=== PATIENT | male | born 1990 | race African-American/Black ===

== ENCOUNTER 2022-05-16 12:00 | Emergency (ER) | payer MEDICAID, OTHER ==
[~2022-05-16] VITALS: Ht 170.2 cm; Wt 74.9 kg
[2022-05-16 12:23] VITALS: BP 119/72
[2022-05-16] MEDS ORDERED: KETOROLAC TROMETH 60MG/2ML VIAL IM ONE (12:30)
[2022-05-16] MEDS ORDERED: HYDROcodone-ACET 5/325MG TAB PO ONE (12:30)
[2022-05-16] MEDS ORDERED: HYDR-4902 PO (13:19)
[2022-05-16] MEDS ORDERED: IBUP800T26 PO (13:19)
== END 2022-05-16 13:57 | disposition home or self-care (01) ==
LOC: ER 12:00
DX: S63.502A Unspecified sprain of left wrist, initial encounter (principal); W01.0XXA Fall on same level from slipping, tripping and stumbling without subsequent striking against object, initial encounter; Y93.89 Activity, other specified; Y92.89 Other specified places as the place of occurrence of the external cause; Y99.8 Other external cause status
CPT/HCPCS: 73130; 96372; 99283; J1885

== ENCOUNTER 2022-08-20 04:27 | Emergency (ER) | payer MEDICAID, OTHER ==
[~2022-08-20] VITALS: Ht 170.2 cm; Wt 70.4 kg
[~2022-08-20 04:27] MED LIST: HYDR-4902 PO; IBUP800T26 PO
[2022-08-20 06:33] VITALS: BP 134/85
[2022-08-20] MEDS ORDERED: HYDROcodone-ACET 5/325MG TAB PO ONE (07:15)
[2022-08-20] MEDS ORDERED: BACL10TA PO (07:32)
[2022-08-20] MEDS ORDERED: IBUP800T27 PO (07:32)
== END 2022-08-20 07:36 | disposition home or self-care (01) ==
LOC: ER 04:27
DX: S39.012A Strain of muscle, fascia and tendon of lower back, initial encounter (principal); F17.210 Nicotine dependence, cigarettes, uncomplicated; Z79.899 Other long term (current) drug therapy; V89.2XXA Person injured in unspecified motor-vehicle accident, traffic, initial encounter; Y93.89 Activity, other specified; Y92.89 Other specified places as the place of occurrence of the external cause; Y99.8 Other external cause status
CPT/HCPCS: 72040; 72100

== ENCOUNTER 2023-12-10 16:19 | Inpatient (IN) | payer MEDICAID ==
[~2023-12-10] VITALS: Ht 170.2 cm; Wt 67.0 kg
[~2023-12-10 16:19] MED LIST changes: +BACL10TA PO; +IBUP-1455 PO; +IBUP-1456 PO; -IBUP800T26 PO
[2023-12-10] MEDS: ONDANSETRON ODT 4 MG TAB PO ONE (16:52)
[2023-12-10] MEDS: MECLIZINE HCL 25 MG TAB PO ONE (16:52)
[2023-12-10 16:55] VITALS: PULSE 61; RESP 16; O2SAT 100
[2023-12-10 17:31] LABS: Basophils # (auto) 0.1 10 ^3/uL (0-0.2); Basophils % (auto) 0.9 % (0.0-2.0); Eosinophils # (auto) 0.2 10 ^3/uL (0-0.8); Eosinophils % (auto) 3.6 % (0.0-7.0); Hematocrit 48.4 % (41.0-53.0); Hemoglobin 16.2 g/dL (13.5-17.5); Lymphocytes % (auto) 29.7 % (10.0-50.0); Mean Corpuscular Hemoglobin 32.4 pg (28.0-32.0); Mean Corpuscular Hgb Conc. 33.6 g/dL (32.0-36.0); Mean Corpuscular Volume 96.3 fL (80.0-100.0); Monocytes # (auto) 0.7 10 ^3/uL (0-1.3); Monocytes % (auto) 10.4 % (0.0-12.0); Neutrophils # (auto) 3.8 10 ^3/uL (1.6-8.6); Neutrophils % (auto) 55.4 % (37.0-80.0); Nucleated Red Blood Cells % 0.1 %; Red Blood Cells 5.02 10^6/uL (4.5-5.90); Red Cell Distribution Width 12.9 % (11.8-14.3); White Blood Cell 6.8 10^3/uL (4.4-10.8)
[2023-12-10 17:44] LABS: Alanine Aminotransferase 22 U/L (7-40); Albumin 4.4 g/dL (3.2-4.8); Alkaline Phosphatase 69 U/L (46-116); Anion Gap 9 (5-15); Aspartate Aminotransferase 15 U/L (13-40); BUN/Creatinine Ratio 4.8 (10.0-20.0); Bilirubin, Total 0.7 mg/dL (0.2-1.0); Blood Urea Nitrogen 6 mg/dL (9-23); Calcium 9.8 mg/dL (8.7-10.4); Carbon Dioxide 25 mmol/L (20-30); Chloride 103 mmol/L (98-107); Glucose 92 mg/dL (74-106); Lipase 51 U/L (12-53); Potassium 3.6 mmol/L (3.5-5.1); Sodium 137 mmol/L (136-145)
[2023-12-10 17:45] LABS: Total Protein 7.5 g/dL (5.7-8.2)
[2023-12-10 17:46] LABS: Urine Bacteria None Seen /hpf (None Seen); Urine WBC None Seen /hpf (0 - 3)
[2023-12-10 18:09] LABS: Urine Blood Negative /uL (Negative); Urine Clarity Clear (Clear); Urine Color Colorless (Yellow); Urine Protein, UAD Negative (Negative); Urine Specific Gravity 1.001 (1.001-1.035); Urine Urobilinogen Normal (Negative)
[2023-12-10] MEDS ORDERED: DOCUSATE SOD 100 MG CAP PO PRN (19:30)
[2023-12-10] MEDS ORDERED: ONDANSETRON HCL 4 MG/2 ML VIAL IV PRN (19:30)
[2023-12-10] MEDS: LACTATED RINGER'S 1,000 ML IV ONE (19:30)
[2023-12-10 19:59] LABS: Triglycerides 112 mg/dL (< 150)
[2023-12-10 20:00] LABS: LDL Cholesterol 83 mg/dL (< 100)
[2023-12-10 20:01] LABS: Cholesterol 145 mg/dL (< 200); HDL Cholesterol 42 mg/dL (40-59)
[2023-12-10] MEDS: SODIUM CHLOR 0.9% PF (SALINE LOCK) 10ML VIAL/SYR IV SCH (22:22)
[2023-12-11] VITALS (9 sets, daily range): BP systolic 111–136; BP diastolic 62–85; PULSE 45–69; RESP 16–19; TEMP 97.7–99; O2SAT 95–100
[2023-12-11] MEDS: HYDROcodone-ACET 5/325MG TAB PO PRN (03:52)
[2023-12-11] MEDS: ENOXAPARIN SOD 40 MG/0.4 ML SYRINGE SC SCH (09:56)
[2023-12-11 10:26] LABS: Basophils # (auto) 0 10 ^3/uL (0-0.2); Basophils % (auto) 0.6 % (0.0-2.0); Eosinophils # (auto) 0.2 10 ^3/uL (0-0.8); Eosinophils % (auto) 4.8 % (0.0-7.0); Hematocrit 45.6 % (41.0-53.0); Hemoglobin 15.7 g/dL (13.5-17.5); Mean Corpuscular Hemoglobin 32.7 pg (28.0-32.0); Mean Corpuscular Hgb Conc. 34.5 g/dL (32.0-36.0); Mean Corpuscular Volume 94.8 fL (80.0-100.0); Monocytes # (auto) 0.6 10 ^3/uL (0-1.3); Monocytes % (auto) 12.1 % (0.0-12.0); Neutrophils # (auto) 2.2 10 ^3/uL (1.6-8.6); Neutrophils % (auto) 43.5 % (37.0-80.0); Nucleated Red Blood Cells % 0.2 %; Red Blood Cells 4.81 10^6/uL (4.5-5.90); Red Cell Distribution Width 12.8 % (11.8-14.3); White Blood Cell 5.1 10^3/uL (4.4-10.8)
[2023-12-11 10:47] LABS: Alanine Aminotransferase 19 U/L (7-40); Albumin 4.1 g/dL (3.2-4.8); Alkaline Phosphatase 63 U/L (46-116); Anion Gap 5 (5-15); Aspartate Aminotransferase 11 U/L (13-40); Bilirubin, Total 0.9 mg/dL (0.2-1.0); Blood Urea Nitrogen 7 mg/dL (9-23); Calcium 9.7 mg/dL (8.7-10.4); Carbon Dioxide 26 mmol/L (20-30); Chloride 107 mmol/L (98-107); Glucose 96 mg/dL (74-106); Sodium 138 mmol/L (136-145)
[2023-12-11 10:48] LABS: Total Protein 6.5 g/dL (5.7-8.2)
[2023-12-11] MEDS: NICOTINE 14 MG/24HR TOPICAL PATCH TD ONE (11:45)
[2023-12-11 12:39] LABS: Folate (Folic Acid) 11.12 ng/mL (>5.38)
[2023-12-11] MEDS: CYANOCOBALAMIN (B-12) 1000 MCG/1 ML VIAL IM ONE (15:20)
[2023-12-12 01:00] VITALS: BP 128/73; PULSE 60; RESP 18; TEMP 98.2; O2SAT 97
[2023-12-12] MEDS ORDERED: IOHEXOL 350 MG/ML 100ML IJ ONE (03:38)
[2023-12-12 05:00] VITALS: BP 130/79; PULSE 60; RESP 18; TEMP 98.2; O2SAT 98
[2023-12-12 06:34] LABS: Chloride 104 mmol/L (98-107); Potassium 3.9 mmol/L (3.5-5.1); Sodium 136 mmol/L (136-145)
[2023-12-12 06:35] LABS: Anion Gap 6 (5-15); Carbon Dioxide 26 mmol/L (20-30)
[2023-12-12 06:36] LABS: Calcium 9.8 mg/dL (8.7-10.4)
[2023-12-12 06:41] LABS: BUN/Creatinine Ratio 6.8 (10.0-20.0); Blood Urea Nitrogen 8 mg/dL (9-23); Glucose 92 mg/dL (74-106)
[2023-12-12 06:45] LABS: Basophils # (auto) 0 10 ^3/uL (0-0.2); Basophils % (auto) 0.6 % (0.0-2.0); Eosinophils # (auto) 0.3 10 ^3/uL (0-0.8); Hematocrit 47.5 % (41.0-53.0); Hemoglobin 16.7 g/dL (13.5-17.5); Lymphocytes # (auto) 1.8 10 ^3/uL (0.4-5.4); Lymphocytes % (auto) 33.4 % (10.0-50.0); Mean Corpuscular Hemoglobin 33.2 pg (28.0-32.0); Mean Corpuscular Hgb Conc. 35.1 g/dL (32.0-36.0); Mean Corpuscular Volume 94.5 fL (80.0-100.0); Monocytes # (auto) 0.5 10 ^3/uL (0-1.3); Monocytes % (auto) 9.4 % (0.0-12.0); Neutrophils # (auto) 2.7 10 ^3/uL (1.6-8.6); Neutrophils % (auto) 51.6 % (37.0-80.0); Nucleated Red Blood Cells % 0.2 %; Red Blood Cells 5.03 10^6/uL (4.5-5.90); Red Cell Distribution Width 12.5 % (11.8-14.3); White Blood Cell 5.3 10^3/uL (4.4-10.8)
[2023-12-12 08:00] VITALS: PULSE 58
[2023-12-12] MEDS: NICOTINE 14 MG/24HR TOPICAL PATCH TD SCH (09:37)
[2023-12-12] MEDS: CYANOCOBALAMIN 500 MCG TAB PO SCH (09:37)
[2023-12-12 10:19] VITALS: BP 146/81; PULSE 77; RESP 16; TEMP 98.5; O2SAT 94
[2023-12-12 11:06] LABS: Amphetamine Screen, Urine Neg (NEGATIVE); Benzodiazephine Screen, Urine Neg (NEGATIVE)
[2023-12-12 11:08] LABS: Barbiturate Scree,Urine Neg (NEGATIVE); Cannabinoid Screen, Urine Pos (NEGATIVE); Cocaine Screen, Urine Neg (NEGATIVE); Opiate Scree,Urine Neg (NEGATIVE); Phencyclidine Screen, Urine Neg (NEGATIVE)
[2023-12-12 13:01] VITALS: BP 132/72; PULSE 57; RESP 16; TEMP 98.3; O2SAT 97
[2023-12-12] MEDS ORDERED: CYAN-17 PO (16:45)
== END 2023-12-12 14:26 | disposition home or self-care (01) | DRG 201 ==
LOC: ER 16:19 → TELE 19:29 → TELE-WESTW 19:57
PROVIDERS: ADMIT Internal Medicine Pulmonary Disease; ATTEND Internal Medicine
DX: R00.1 Bradycardia, unspecified (principal); F17.210 Nicotine dependence, cigarettes, uncomplicated; F41.9 Anxiety disorder, unspecified; Z79.899 Other long term (current) drug therapy; Z79.1 Long term (current) use of non-steroidal anti-inflammatories (NSAID)
CPT/HCPCS: 36415; 70450; 70496; 70551; 71045; 80048; 80053; 80061; 80307; 81001; 82607; 82746; 82962; 83036; 83605; 83690; 83735; 83880; 84443; 84484; 85025; 87081; 93005; 93306; 93886; G0378; Q0162